=== PATIENT | female | born 1955 | race Caucasian/White ===

== ENCOUNTER → 2016-08-23 | Outpatient (CLI) | payer OTHER ==
--- NOTE | 2016-08-23 10:31 | MA ---
Diagnostic Digital Left Mammogram with CAD History: Follow-up small nodule left breast. Comparison: January 08, 2016, December 08, 2015, October 2013 and November 2010. Technique: 2 views of the left breast. Images reviewed with iCAD. Density:B Findings: No significant change in a small nodular density in the central left breast since 2010, con sidering a small amount of parenchyma overlying the nodule on the current exam. The remainder of the left breast is stable as well. Impression: Benign left breast. Indication: Return to screening mammography of both breasts in December 2015. Results and recommendation were communicated to the patient at the time of the examination.
== END ==
LOC: BRMIMAGING 09:51
PROVIDERS: ATTEND Family Medicine
DX: N63 Unspecified lump in breast (principal)
CPT/HCPCS: G0206